=== PATIENT | male | born 1990 | race African-American/Black ===

== ENCOUNTER 2020-10-16 08:12 | Emergency (ER) | payer OTHER ==
[~2020-10-16] VITALS: Ht 175.3 cm; Wt 61.2 kg
[2020-10-16] MEDS ORDERED: BACTRIM DS TAB1 EAC1 ORAL (08:26)
[2020-10-16] MEDS ORDERED: CEPHALEXIN500 MG ORAL (08:26)
[2020-10-16] MEDS ORDERED: Cephalexin 500mg cap ORAL ONE (08:30)
[2020-10-16] MEDS ORDERED: Bactrim-DS 1 tab ORAL ONE (08:30)
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
[2020-10-16 08:50] VITALS: BP 134/67
--- NOTE | 2020-10-16 08:50 | NUR ---
ED Nurse Note:steri strips and dressing placed on laceration wound on left hand Pt cleared by health care Provider for discharge. DC instructions/prescription was given and explained to pt and verbalized understanding of teachings. All medical deviecs such as ID band removed. Pt is AAO x4, ambulatory and left with all personal belongings.
[2020-10-16 08:53] VITALS: BP 134/67
== END 2020-10-16 08:30 | disposition home or self-care (01) ==
LOC: EMR 08:30
DX: S61.412A Laceration without foreign body of left hand, initial encounter (principal); L08.9 Local infection of the skin and subcutaneous tissue, unspecified; W22.8XXA Striking against or struck by other objects, initial encounter; Y93.55 Activity, bike riding; Y92.9 Unspecified place or not applicable
CPT/HCPCS: 99282